=== PATIENT | male | born 1955 | race Caucasian/White ===

== ENCOUNTER 2017-07-29 14:27 | Observation (INO) | payer MEDICARE ==
[2017-07-28 15:25] LABS: HEMATOCRIT 45.2 % (38.2-49.6); HEMOGLOBIN 14.7 g/dL (14.0-18.0); LYMPHOCYTES # (AUTO) 0.9 (1.0-3.2); LYMPHOCYTES % 6.2 % (18.0-39.1); MEAN CORPUSCULAR HEMOGLOBIN 30.2 pg (28-32); MEAN CORPUSCULAR HGB CONC 32.5 g/dL (31-35); MONOCYTES # (AUTO) 0.6 (0.2-0.8); MONOCYTES % 4.4 % (4.4-11.3); NEUTROPHILS # (AUTO) 12.4 (2.1-6.9); NEUTROPHILS % 88.6 % (38.7-80.0); PLATELET COUNT 192 x10e3/uL (140-360); RED BLOOD COUNT 4.86 x10e6/uL (4.3-5.7); RED CELL DISTRIBUTION WIDTH 15.3 % (11.7-14.4)
[2017-07-28 15:40] LABS: INR 1.1; PROTHROMBIN TIME 13.4 seconds (11.9-14.5)
[2017-07-28 15:52] LABS: ALBUMIN 3.3 g/dL (3.5-5.0); ALBUMIN/GLOBULIN RATIO 0.8 (0.8-2.0); ANION GAP 17.5 mmol/L (8-16); CALCIUM 10.2 mg/dL (8.4-10.2); CHOL/HDL RATIO 5.9 (3.9-4.7); CREATININE, SERUM 1.7 mg/dL (0.72-1.25); POTASSIUM 4.5 mmol/L (3.5-5.1)
[~2017-07-29] VITALS: Ht 182.9 cm; Wt 132.0 kg
[~2017-07-29 14:27] MED LIST: AMIODARONE HCL200 MG PO; COUMADIN6 MG PO; FLOMAX0.4 MG PO; FOLIC ACID1 MG PO; LEVOTHYROXINE50 MCG PO; METHOTREXATE2.5 MG PO; NORCO 10-325 T1 EACH PO; PIROXICAM PO; SPIRONOLACTONE25 MG PO; XANAX1 MG PO; Z.0.COREG25 MG PO; Z.0.COUMADIN6 MG PO; Z.0.DIGOXIN125 MCG MT; Z.0.DIGOXIN250 MCG PO; Z.0.LASIX40 MG PO; Z.0.LOTENSIN20 MG MT; Z.0.POTASSIUM CHLO20 PO; Z.0.ZYLOPRIM300 MG PO; [UNRECOGNIZED DRUG - CODE] MT
[2017-07-29] MEDS ORDERED: METHYLPREDNISOLONE SOD SUCC 125 MG/2ML VIAL ONE (14:34)
[2017-07-29] MEDS ORDERED: DIPHENHYDRAMINE HCL INJ 1 ML ONE (14:35)
[2017-07-29] MEDS ORDERED: SODIUM CHLORIDE 0.9% 1000ML 1,000 ML ONE (14:36)
[2017-07-29] MEDS ORDERED: FAMOTIDINE 20 MG/2 ML VIAL IV ONE (14:36)
[2017-07-29] MEDS ORDERED: FLECTOR1 EACH (14:58)
[2017-07-29] MEDS ORDERED: LEVETIRACETAM500 MG PO (14:58)
[2017-07-29] MEDS ORDERED: DICYCLOMINE HCL20 MG PO (14:58)
[2017-07-29] MEDS ORDERED: COUMADIN3 MG PO (14:58)
[2017-07-29] MEDS ORDERED: BUSPIRONE HCL5 MG PO (14:58)
[2017-07-29] MEDS ORDERED: ZINC50 M1 PO (14:59)
[2017-07-29] MEDS ORDERED: MAGNESIUM OXID400 MG PO (14:59)
[2017-07-29] MEDS ORDERED: VITAMIN A8000 UNIT PO (14:59)
[2017-07-29] MEDS ORDERED: ZOLPIDEM TARTRA10 MG PO (14:59)
[2017-07-29] MEDS ORDERED: LIDOCAINE HCL 2% LOCAL 20 ML VIAL ONE (16:43)
[2017-07-29] MEDS ORDERED: FENTANYL CITRATE/PF 100MCG/2 ML INJ ONE (16:43)
[2017-07-29] MEDS ORDERED: MIDAZOLAM HCL 2 MG/2 ML VIAL ONE ×2 (16:43→17:24)
[2017-07-29] MEDS ORDERED: HEPARIN SOD/SOD CHLORIDE 2,000 ML ONE (16:43)
[2017-07-29] MEDS ORDERED: IOPAMIDOL 370 MG/ML 200 ML INFUS..BTL INJ ONE (16:44)
[2017-07-29] MEDS ORDERED: MAGNESIUM OXIDE 400 MG TAB PO SCH (19:30)
[2017-07-29] MEDS ORDERED: DICLOFENAC SODI75 MG PO (19:30)
[2017-07-29] MEDS ORDERED: WARFARIN SOD 3 MG TAB PO SCH (19:30)
[2017-07-29] MEDS ORDERED: DICYCLOMINE HCL 20 MG TAB PO SCH (19:30)
[2017-07-29] MEDS: LEVOTHYROXINE SODIUM 75 MCG TAB PO SCH (19:45)
[2017-07-29 20:00] VITALS: BP 130/81
[2017-07-29] MEDS: BUSPIRONE HCL 5 MG TAB PO SCH (20:00)
[2017-07-29] MEDS: LEVETIRACETAM 500 MG TAB PO SCH (20:00)
[2017-07-29] MEDS: TAMSULOSIN HCL 0.4 MG CAP PO SCH (20:00)
[2017-07-29] MEDS: HYDROCODONE/APAP 10MG-325MG TAB PO PRN (20:20)
[2017-07-29] MEDS: ZOLPIDEM TARTRATE 10 MG TAB PO SCH (21:24)
[2017-07-30] VITALS (8 sets, daily range): BP systolic 114–143; BP diastolic 74–92
[2017-07-30] MEDS: LEVOTHYROXINE SODIUM 75 MCG TAB PO SCH (05:41)
[2017-07-30] MEDS ORDERED: LEVOTHYROXINE SODIUM 75 MCG TAB PO SCH (06:00)
[2017-07-30] MEDS: LEVETIRACETAM 500 MG TAB PO SCH ×2 (08:30→20:59)
--- NOTE | 2017-07-30 08:35 | Operative Report ---
DATE OF PROCEDURE: July 29, 2017 INDICATIONS: 1. Coronary artery disease. 2. Congestive heart failure. PROCEDURES PERFORMED 1. Left heart catheterization, selective coronary angiography, left ventriculography. 2. Deployment of right groin VASCADE closure device. COMPLICATIONS: None. RECOMMENDATIONS: Change out of dual-chamber ICD for end of life. Access obtained in the right femoral artery. A 6-Portuguese sheath was placed. Diagnostic coronary angiogram revealed mild coronary artery disease, 20% to 30% luminal stenosis in the left main. Left anterior descending, circumflex, right coronary artery: Excellent flow and no critical stenosis or occlusions. LV ejection fraction 40% with global hypokinesis. LV end-diastolic pressure of 18. No gradient across the aortic valve on pullback. Right groin repaired using VASCADE closure device. The patient was discharged home afterwards. Admitted to the hospital for change out of his AICD. Job#: [id number]
[2017-07-30] MEDS: HYDROCODONE/APAP 10MG-325MG TAB PO PRN ×2 (08:53→17:36)
[2017-07-30] MEDS: MAGNESIUM OXIDE 400 MG TAB PO SCH (08:56)
[2017-07-30] MEDS: ALLOPURINOL 300 MG TAB PO SCH (08:56)
[2017-07-30] MEDS: FUROSEMIDE 40 MG TAB PO SCH (08:56)
[2017-07-30] MEDS: BUSPIRONE HCL 5 MG TAB PO SCH ×3 (08:56→20:59)
[2017-07-30] MEDS: POTASSIUM CHLORIDE 20 MEQ TAB CR PO SCH (08:56)
[2017-07-30] MEDS ORDERED: DICLOFENAC EPOLAMINE 1.3% PATCH TP SCH (09:00)
[2017-07-30] MEDS ORDERED: VOLTAREN 75 MG PO SCH (09:00)
[2017-07-30] MEDS ORDERED: AMIODARONE HCL 200 MG TAB PO SCH (09:00)
[2017-07-30] MEDS ORDERED: LEVOTHYROXINE SODIUM 50 MCG TAB PO SCH (09:00)
[2017-07-30] MEDS ORDERED: BUSPIRONE HCL 5 MG TAB PO SCH (09:00)
--- NOTE | 2017-07-30 10:40 | Progress Note ---
DATE: July 30, 2017 CARDIOLOGY PROGRESS NOTE SUBJECTIVE: The patient denies chest pain. He endorses some shortness of breath. He underwent cardiac catheterization yesterday, which revealed mild coronary artery disease approximately 20% to 30% diffuse disease. OBJECTIVE VITALS: Temperature 97.7 degrees, pulse 52, respiratory rate 20, blood pressure 137/81, and oxygen saturation 95% on room air. GENERAL: Awake, alert and in no acute distress. LUNGS: Clear to auscultation bilaterally. No wheezes or crackles. CARDIOVASCULAR: Normal rate. Regular rhythm. No murmur. Normal S1 and S2. ABDOMEN: Soft and nontender. EXTREMITIES: One plus pitting edema. CARDIAC MEDICATIONS 1. Amiodarone 200 mg p.o. b.i.d. 2. Levothyroxine 75 mcg p.o. daily. 3. Furosemide 40 mg p.o. daily. 4. Warfarin 6 mg on Friday, Friday, Friday, and Friday with 3 mg on and Friday. LABS: WBC 13.95, hemoglobin 14.7, hematocrit 45.2, and platelets 192,000. Sodium 143, potassium 4.5, chloride 103, CO2 27, BUN 42, creatinine 1.7. AST 85, ALT 89. Triglycerides 240, cholesterol 254, LDL 163, HDL 43. Telemetry is normal sinus rhythm. IMPRESSION 1. Chronic systolic heart failure: Status post automatic implanted cardioverter defibrillator. 2. Paroxysmal atrial fibrillation. 3. Mild coronary artery disease. 4. Hypothyroidism. RECOMMENDATIONS: Continue current medications. The patient is planned for generator change by electrophysiology today. Resume warfarin once generator change is complete. Continue current cardiac medications otherwise. Job#: [id number] CT
[2017-07-30] MEDS ORDERED: FENTANYL CITRATE/PF 100MCG/2 ML INJ ONE (13:44)
[2017-07-30] MEDS ORDERED: MIDAZOLAM HCL 2 MG/2 ML VIAL ONE ×3 (13:45→14:55)
[2017-07-30] MEDS ORDERED: SODIUM CHLORIDE 0.9% 500ML 500 ML ONE (13:45)
[2017-07-30] MEDS ORDERED: SODIUM CHLORIDE 0.9% 1000ML 1,000 ML ONE ×2 (13:45→13:46)
[2017-07-30] MEDS ORDERED: LIDOCAINE HCL 2% LOCAL 20 ML VIAL ONE (13:45)
[2017-07-30] MEDS ORDERED: BACITRACIN 50,000 UNIT VIAL ONE (13:45)
[2017-07-30] MEDS ORDERED: SODIUM CHLORIDE 0.9% 100 ML 0 ML ONE (14:22)
[2017-07-30] MEDS ORDERED: CEFAZOLIN SOD 1 GM VIAL ONE (14:22)
[2017-07-30] MEDS ORDERED: VANCOMYCIN HCL 1GM/NS 250 ML BAG ONE (18:05)
--- NOTE | 2017-07-30 20:49 | Operative Report ---
DATE OF PROCEDURE: July 30, 2017 REFERRING PHYSICIAN: Dr. Aguilera. PREPROCEDURE DIAGNOSES 1. Implantable cardio-defibrillator at elective replacement indicator. 2. Dual-chamber implantable cardioverter-defibrillator in place. 3. History of sick sinus syndrome. 4. History of nonischemic cardiomyopathy with historically ejection fraction of 30%. 5. History of ventricular tachycardia, status post implantable cardioverter-defibrillator shocks. POSTPROCEDURE DIAGNOSES 1. Implantable cardio-defibrillator at elective replacement indicator. 2. Dual-chamber implantable cardioverter-defibrillator in place. 3. History of sick sinus syndrome. 4. History of nonischemic cardiomyopathy with historically ejection fraction of 30%. 5. History of ventricular tachycardia, status post implantable cardioverter-defibrillator shocks. COMPLICATIONS: None. ESTIMATED BLOOD LOSS: 5 mL. PROCEDURES PERFORMED: 1. Dual-chamber implantable cardioverter-defibrillator generator replacement. 2. Moderate sedation. Moderate conscious sedation was provided under my direct supervision by sedation-trained nurse. Sedation approximate time was 15 minutes. Versed and Fentanyl. There were no complications. See sedation form for details. DESCRIPTION OF PROCEDURE: After informed consent was obtained, the patient was brought to the electrophysiology laboratory in a fasting nonsedated state. The area over his chest was prepped and draped in the usual sterile fashion. Monitored sedation and prophylactic antibiotics were given. One-percent lidocaine was used as the local anesthetic and a 3-cm skin incision was made in the left subclavicular area over the previous device. Electrocautery and sharp and blunt dissection were used to reach the previous device. It was freed out of the pocket. The pocket was irrigated with antibiotic solution using the pulse circuit walker. Hemostasis was meticulous. The leads were disconnected from the old device and connected to the new device. The leads were tested through this new device and demonstrated exact same numbers, normal function in both leads, unchanged from previously. The device was placed in the pocket. The incision was closed using Vicryl and Dermabond. The patient tolerated the procedure well. the procedure was deemed complete. SUMMARY OF HARDWARE IMPLANTED 1. The new defibrillator is a [employer] enGreet, model #D153, [id number]. 2. The old right atrial lead and ventricular leads are [employer] implanted in 2009, normal functioning. IMPRESSION Successful dual-chamber implantable cardioverter-defibrillator change out. PLAN 1. Routine postoperative monitoring in telemetry bed. 2. Follow up in 2 weeks. Job#: [id number] SHE
[2017-07-30] MEDS: AMIODARONE HCL 200 MG TAB PO SCH (20:59)
[2017-07-30] MEDS: ZOLPIDEM TARTRATE 10 MG TAB PO SCH (20:59)
[2017-07-30] MEDS: TAMSULOSIN HCL 0.4 MG CAP PO SCH (20:59)
[2017-07-30] MEDS: DICLOFENAC EPOLAMINE 1.3% PATCH TP SCH (20:59)
[2017-07-31] MEDS: HYDROCODONE/APAP 10MG-325MG TAB PO PRN ×2 (00:10→08:46)
--- NOTE | 2017-07-31 04:26 | Consultation ---
REASON FOR CONSULTATION: ICD at [facility]. HISTORY OF PRESENT ILLNESS: This is a 62-year-old gentleman with history of ischemic cardiomyopathy with severe systolic dysfunction, ejection fraction historically at 30% who has had a dual chamber cardiac defibrillator implanted about 10 years ago. Patient has had episodes of ventricular tachycardia requiring ICD shocks. He has been followed by Dr. Aguilera. He presented for heart catheterization demonstrating no significant coronary artery disease. So, the device was interrogated and was found to be at JAMES. We were consulted to consider battery replacement. Patient also has history of sick sinus syndrome, reason why he has a dual chamber device. REVIEW OF SYSTEMS CONSTITUTIONAL: Negative. CARDIOVASCULAR: Negative. RESPIRATORY: Negative. GASTROINTESTINAL: Negative. GENITOURINARY: Negative. MUSCULOSKELETAL: Negative. EYES: Negative. ENT: Negative. ALLERGY AND IMMUNOLOGY: Negative. PSYCHIATRY: Negative. PAST MEDICAL HISTORY: Hypertension, cardiomyopathy. PAST SURGICAL HISTORY: Defibrillator. SOCIAL HISTORY: No smoking, alcohol or illicit drugs. FAMILY HISTORY: No premature coronary artery disease. PHYSICAL EXAMINATION VITAL SIGNS: Blood pressure 110/60, pulse 70, respirations 20, O2 sats 98%. GENERAL: No acute distress. HEENT: Moist mucous membranes. CARDIOVASCULAR: Regular. RESPIRATORY: Clear. ABDOMEN: Soft and nontender. MUSCULOSKELETAL: 2+ distal pulses. NEUROLOGIC: No focal deficit. SKIN: No lesions. PSYCHIATRY: Normal thought process. EKG: Sinus rhythm, narrow complex QRS. IMPRESSION 1. Implantable cardioverter-defibrillator at elective replacement interval. 2. History of sick sinus syndrome, dual-chamber implantable cardioverter-defibrillator in place. 3. History of nonischemic cardiomyopathy with historically ejection fraction at 30%. 4. History of ventricular tachycardia requiring implantable cardioverter-defibrillator shocks. RECOMMENDATIONS: I had a discussion with the patient. He has indication for ICD change out. This was discussed with the patient, procedure with benefits and risks that should be done sooner rather than later since he has indication for pacing. Patient voices understanding and wishes to proceed. Will proceed with ICD change out. Thank you for letting us participate in Mr. Russ's healthcare. Job#: [id number]
[2017-07-31] MEDS: LEVOTHYROXINE SODIUM 75 MCG TAB PO SCH (05:44)
[2017-07-31 05:45] VITALS: BP 122/81
[2017-07-31 07:15] VITALS: BP_SYST 127; BP_SYST 137; BP_DIAS 73
[2017-07-31] MEDS: BUSPIRONE HCL 5 MG TAB PO SCH (07:48)
[2017-07-31] MEDS: LEVETIRACETAM 500 MG TAB PO SCH (07:48)
[2017-07-31] MEDS: AMIODARONE HCL 200 MG TAB PO SCH (08:45)
[2017-07-31] MEDS: MAGNESIUM OXIDE 400 MG TAB PO SCH (08:45)
[2017-07-31] MEDS: DICLOFENAC EPOLAMINE 1.3% PATCH TP SCH (08:46)
[2017-07-31] MEDS: POTASSIUM CHLORIDE 20 MEQ TAB CR PO SCH (08:58)
[2017-07-31] MEDS: FUROSEMIDE 40 MG TAB PO SCH (08:58)
[2017-07-31] MEDS: ALLOPURINOL 300 MG TAB PO SCH (08:59)
[2017-07-31] MEDS ORDERED: CARVEDILOL 3.125 MG TAB PO SCH (10:00)
[2017-07-31] MEDS ORDERED: COREG3.125 MG PO (10:23)
[2017-07-31] MEDS ORDERED: MINOCIN50 MG PO (10:29)
[2017-07-31] MEDS ORDERED: ULTRAM50 MG PO (10:30)
--- NOTE | 2017-07-31 14:42 | Consultation ---
DATE OF CONSULTATION: July 30, 2017 ADDENDUM: The electrophysiology consult was performed on July 30, 2017. Job#: [id number] EV
[2017-07-31] MEDS ORDERED: WARFARIN SOD 3 MG TAB PO SCH (17:00)
[2017-08-01] MEDS ORDERED: WARFARIN SOD 3 MG TAB PO SCH ×2 (17:00)
[2017-08-02] MEDS ORDERED: WARFARIN SOD 3 MG TAB PO SCH (17:00)
== END 2017-07-31 10:40 | disposition home or self-care (01) ==
LOC: CATH LAB 14:27 → IMCU 18:29 → INTOOBSV 18:29
PROVIDERS: ADMIT Internal Medicine Interventional Cardiology; ATTEND Internal Medicine Interventional Cardiology
DX: I50.22 Chronic systolic (congestive) heart failure (principal); I20.8 Other forms of angina pectoris; I48.0 Paroxysmal atrial fibrillation; T82.111A Breakdown (mechanical) of cardiac pulse generator (battery), initial encounter; I49.5 Sick sinus syndrome; I25.10 Atherosclerotic heart disease of native coronary artery without angina pectoris; E03.9 Hypothyroidism, unspecified
CPT/HCPCS: 33263; 36415; 77001; 80053; 80061; 85025; 85610; 93005; 93458; C1721; C1760; C1769; G0378 ×3; J1200; J2001 ×2; J2250 ×2; J2930; J3370; J7030 ×2; J7040; Q9967; 33270; 36140; 93452; J0690

== ENCOUNTER → 2022-08-30 | Day surgery (SDC) | payer MEDICARE ==
[2022-08-22 13:45] LABS: BASOPHILS # (AUTO) 0.1 (0.0-0.1); EOSINOPHILS # (AUTO) 0.1 (0.0-0.4); EOSINOPHILS % 1.5 % (0.0-6.0); HEMATOCRIT 43.9 % (38.2-49.6); HEMOGLOBIN 14.6 g/dL (14.0-18.0); LYMPHOCYTES # (AUTO) 1.6 (1.0-3.2); LYMPHOCYTES % 20.3 % (18.0-39.1); MEAN CORPUSCULAR HGB CONC 33.3 g/dL (31-35); MEAN CORPUSCULAR VOLUME 93.2 fL (81-99); MONOCYTES # (AUTO) 0.4 (0.2-0.8); MONOCYTES % 5.5 % (4.4-11.3); NEUTROPHILS # (AUTO) 5.6 (2.1-6.9); NEUTROPHILS % 71.2 % (38.7-80.0); PLATELET COUNT 189 x10e3/uL (140-360); RED BLOOD COUNT 4.71 x10e6/uL (4.3-5.7); RED CELL DISTRIBUTION WIDTH 14.1 % (11.7-14.4)
[2022-08-22 14:03] LABS: ALBUMIN 2.7 g/dL (3.5-5.0); ALBUMIN/GLOBULIN RATIO 0.6 (0.8-2.0); ANION GAP 17.8 mmol/L (8-16); CALCIUM 8.5 mg/dL (8.4-10.2); CREATININE, SERUM 1.07 mg/dL (0.72-1.25); POTASSIUM 3.8 mmol/L (3.5-5.1)
[~2022-08-30] MED LIST changes: +ACETAMINOPHEN 1000 MG/100 ML 100 ML IV ONE; +ACETAMINOPHEN/CODEINE 300MG - 30MG TAB ONE; +ALPRAZOLAM0.5 MG PO; +BUSPIRONE HCL5 MG PO; +COREG3.125 MG PO; +COUMADIN3 MG PO; +DEXAMETHASONE SOD PHOS INJ 4 MG/ML SDV ONE; +DICLOFENAC SODI75 MG PO; +DICYCLOMINE HCL20 MG PO; +EPHEDRINE SULFATE INJ 50 MG/ML VIAL ONE; +FENTANYL CITRATE/PF 100MCG/2 ML INJ ONE; +FLECTOR1 EACH; +GENTAMICIN 80MG/NS 100 ML 200 ML IV ONE; +IOPAMIDOL 610MG/1ML 300 MG/ML VIAL IV ONE; +KEPPRA500 MG PO; +LACTATED RINGER'S 1,000 ML ONE; +LEVETIRACETAM500 MG PO; +LEVOFLOXACIN 500MG/D5W 100ML 100 ML IV ONE; +LIDOCAINE HCL 2% LOCAL INJ 5 ML SDV VIAL INJ ONE; +LOVENOX40 MG/0.4 SC; +MAGNESIUM OXID400 MG PO; +METOPROLOL SUCC50 MG PO; +MINOCIN50 MG PO; +ONDANSETRON HCL INJ 2MG/ML 2ML 2 MG/ML VIAL ONE; +PHENAZOPYRIDINE HCL 100 MG TAB ONE; +POVIDONE IODINE 0.05% 0.05 % ML PO ONE; +PROPOFOL IV EMULSION 10 MG/ML 20 ML VIAL ONE; +SEVOFLURANE INHAL SOLN 250 ML PEN BTL ONE; +SUGAMMADEX SODIUM 200 MG/2 ML VIAL IV ONE; +ULTRAM50 MG PO; +VITAMIN A8000 UNIT PO; +WARFARIN SODIUM3 MG PO; +ZINC50 M1 PO; +ZOLPIDEM TARTRA10 MG PO
[2022-08-30 06:38] LABS: INR 1.87
[2022-08-30 06:39] LABS: PARTIAL THROMBOPLASTIN TIME 40.2 seconds (23.8-35.5)
[2022-08-30 11:00] VITALS: BP 115/83
== END | disposition home or self-care (01) ==
LOC: OR 05:24
PROVIDERS: ATTEND Urology
DX: N20.0 Calculus of kidney (principal); N39.0 Urinary tract infection, site not specified; N40.1 Benign prostatic hyperplasia with lower urinary tract symptoms; N13.8 Other obstructive and reflux uropathy; N32.89 Other specified disorders of bladder; N39.41 Urge incontinence; I10 Essential (primary) hypertension; E78.5 Hyperlipidemia, unspecified; I25.10 Atherosclerotic heart disease of native coronary artery without angina pectoris; I48.91 Unspecified atrial fibrillation; Z88.6 Allergy status to analgesic agent; Z01.810 Encounter for preprocedural cardiovascular examination; Z01.812 Encounter for preprocedural laboratory examination; Z01.818 Encounter for other preprocedural examination; Z79.01 Long term (current) use of anticoagulants; Z79.899 Other long term (current) drug therapy; Z86.711 Personal history of pulmonary embolism; Z95.0 Presence of cardiac pacemaker
CPT/HCPCS: 36415 ×2; 50590; 71046; 74018; 80053; 83970; 84550; 85025; 85610; 85730; 93005; C1758; J0131; J1100; J1580; J1956; J2001; J2405; J2704; J3010; J7121; Q9967